=== PATIENT | female | born 1950 | race Caucasian/White ===

== ENCOUNTER 2022-01-08 14:16 | Emergency (ER) | payer OTHER, MEDICAID ==
[~2022-01-08] VITALS: Ht 162.6 cm; Wt 79.5 kg
[2022-01-08] MEDS ORDERED: methylPREDNISolone sod succ 125mg/2ml vial IV ONE (15:05)
[2022-01-08] MEDS ORDERED: ipratropium/albuterol 3ml nebule NEB ONE (15:05)
--- NOTE | 2022-01-08 15:40 | NUR ---
While walking by patients room, over heard patient shouting. I stopped by room to see patient pulling off mask shouting at the respiratory therapist. Patient stated, "Stop asking me these stupid question." The RT asked patient nicely to stop yelling at her. "This is not not yelling, this is me talking loudly. Get this thing off of me." As she fiddles with the RT tx mask. I interjected to find out why patient was yelling. RT stated that patient was upset because she was asking stupid questions, but that she was asking about her oxygen at home. I attempted to call patient. Patient states that she wants to leave and that she would like us to call her daughter danielle to come pick her up. I asked patient if I could get Felisa WATKINS in to speak with her before she made any decision. She agreed. Educated Felisa WATKINS regarding this and he stated that he would go in and speak with her.
[2022-01-08] MEDS ORDERED: morphine 4 MG/ML inj SYRINge IV ONE (15:45)
[2022-01-08] MEDS ORDERED: ondansetron/PF 4mg/2ml inj IV ONE (15:45)
[2022-01-08 15:46] LABS: BASOPHILS # (AUTO) 0.1 X10'3 (0-0.2); BASOPHILS % (AUTO) 1.2 % (0-1); EOSINOPHILS # (AUTO) 0.2 X10'3 (0-0.9); HEMATOCRIT 42.7 % (35.0-45.0); HEMOGLOBIN 14.1 g/dl (12.0-16.0); LYMPHOCYTES # (AUTO) 1.4 X10'3 (1.1-4.8); LYMPHOCYTES % (AUTO) 16.6 % (21-51); MEAN CORPUSCULAR HEMOGLOBIN 30.8 PG (27.0-31.0); MEAN CORPUSCULAR VOLUME 93.5 FL (78-98); MEAN PLATELET VOLUME 7.6 FL (7.4-10.4); MONOCYTES # (AUTO) 0.3 X10'3 (0-0.9); MONOCYTES % (AUTO) 4.2 % (2-12); NEUTROPHILS # (AUTO) 6.2 X10'3 (1.8-7.7); PLATELET COUNT 339 X10'3 (140-440); RED BLOOD COUNT 4.56 X10'6 (4.20-5.60); RED CELL DISTRIBUTION WIDTH 16.3 % (11.5-14.5); WHITE BLOOD COUNT 8.2 X10'3 (4.5-11.0)
[2022-01-08 15:58] LABS: ALANINE AMINOTRANSFERASE 11 U/L (12-78); ALBUMIN 2.8 G/DL (3.4-5.0); ALBUMIN/GLOBULIN RATIO 0.8 (1.1-1.5); ALKALINE PHOSPHATASE 106 IU/L (46-116); ANION GAP 7 (8-16); ASPARTATE AMINO TRANSFERASE 13 U/L (10-37); BILIRUBIN,TOTAL 0.4 MG/DL (0.1-1.0); BLOOD UREA NITROGEN 20 MG/DL (7-18); BUN/CREATININE RATIO 18.5 (6.6-38.0); CHLORIDE 107 MMOL/L (99-107); CREATININE 1.08 MG/DL (0.40-0.90); GLUCOSE 160 MG/DL (70-104); SODIUM 141 MMOL/L (135-145); TOTAL CARBON DIOXIDE 27.3 MMOL/L (24-32); TOTAL PROTEIN 6.3 G/DL (6.4-8.2); eGFR 50 ML/MIN
--- NOTE | 2022-01-08 16:00 | NUR ---
patient yelled at one of the RT when about to administer breathing treatment.
[2022-01-08] MEDS ORDERED: CefTRIAXone 2gm/NS 100ml IVPB 100 ML IV ONE (16:20)
[2022-01-08] MEDS ORDERED: azithromycin/NS 500mg/250ml 250 ML IV ONE (16:20)
--- NOTE | 2022-01-08 16:54 | NUR ---
PATIENT REQUESTED RN TO CALL [phone]/SALVADOR/DAUGHTER, TO LET HER KNOW SHE'S HERE,VOICEMAIL FULL.
--- NOTE | 2022-01-08 17:00 | NUR ---
Given a cup of coffee, and something to eat. No sandwich in the fridge at this time, given gram crackers as an alternative,sugar free jelo- pt then stated, " i don't eat sugar free jelo!".
--- NOTE | 2022-01-08 17:53 | NUR ---
NOTICED PT YELLING OUT FOR HELP. WENT TO BEDSIDE WHEN PT PROCEEDED TO STATE TO ME TO "GET THIS THING OUT OF HERE", REFERRING TO A TURKEY SANDWICH SITTING ON HER BUNCH STAND. I PLACED THE TURKEY SANDWICH ON THE SINK COUNTER AT THAT TIME. PT THEN YELLED AT ME THAT SHE DID NOT ASK FOR TURKEY, AND STATED "I ASKED FOR HAM!". I TRIED TO EXPLAIN TO THE PT THAT WE ONLY RECEIVED TURKEY IN THE EMERGENCY ROOM, AT WHICH POINT SHE TOLD ME "YOU MIGHT WELL JUST THROW IT IN THE GARBAGE, CAUSE I AIN'T EATIN IT". PLACED TURKEY SANDWICH IN THE TRASH CAN AND LEFT PT'S ROOM. WHILE LEAVING ROOM, PT THEN YELLED OUT "AT LEAST GET ME SOME COFFEE".
--- NOTE | 2022-01-08 17:56 | NUR ---
PATIENT YELLING, DID NOT WANT THE SANDWICH THAT WAS GIVEN BECAUSE IT'S NOT TURKEY SANDWICH.
--- NOTE | 2022-01-08 18:14 | NUR ---
"If i don't get a regular tray i will throw it in the trash!".
[2022-01-08] MEDS ORDERED: LORazepam 2 mg/ml vial IV ONE (19:35)
--- NOTE | 2022-01-08 20:11 | NUR ---
pt has been yelling and screaming all shift saying that we are refusing to bring her food but when we bring her food she will refuse what we bring and start yelling that is not what she want. pt was yelling for someone when rn kylie went in to the room pt was tring to pull out her iv kylie got ahold of her arm to stop he then pt started to try and swing on rn kylie i got ahold of pt arms to prevent her from hiting rn kylie. got pt back to her bed charge nurse elke came in and told her that the dr are done treating her with her now tring to hit staff. pt has now calmed down and being more plesant and letting staff give her care
--- NOTE | 2022-01-09 05:07 | NUR ---
PT GIVEN DECAF COFFEE XS 2 CUPS, STILL WANTS MORE.
[2022-01-09] MEDS ORDERED: morphine 4 MG/ML inj SYRINge IV ONE (05:55)
[2022-01-09] MEDS ORDERED: ondansetron/PF 4mg/2ml inj IV ONE (05:55)
--- NOTE | 2022-01-09 07:18 | NUR ---
Gave pt additional 2 cups coffee. Pt talking with daughter and yelling at tech to heat up her coffee. Pt states to daughter that we are "being ass*oles today."
--- NOTE | 2022-01-09 10:13 | NUR ---
Pt upset and yelling at physician. Verbally escalating.
[2022-01-09] MEDS ORDERED: azithromycin 250mg tablet PO ONE (10:20)
[2022-01-09] MEDS ORDERED: ipratropium/albuterol 3ml nebule NEB ONE (10:20)
[2022-01-09] MEDS ORDERED: AZIT250T2 PO (10:20)
[2022-01-09] MEDS ORDERED: PRED20TA PO (10:23)
[2022-01-09] MEDS ORDERED: predniSONE 20 mg tablet PO ONE (10:25)
[2022-01-09] MEDS: methylPREDNISolone sod succ 125mg/2ml vial IV ONE ×2 (10:36→10:42)
[2022-01-09 12:06] VITALS: BP 120/73
== END 2022-01-09 12:22 | disposition short-term general hospital (02) ==
LOC: ER 14:16
DX: J96.21 Acute and chronic respiratory failure with hypoxia (principal); J44.1 Chronic obstructive pulmonary disease with (acute) exacerbation; R07.89 Other chest pain; R45.1 Restlessness and agitation; E11.9 Type 2 diabetes mellitus without complications; G89.29 Other chronic pain; Z85.118 Personal history of other malignant neoplasm of bronchus and lung; Z88.0 Allergy status to penicillin; Z79.2 Long term (current) use of antibiotics; Z79.899 Other long term (current) drug therapy
CPT/HCPCS: 36415; 71045; 71250; 80053; 84145; 84484; 85025; 85610; 93005; 94640; 96365; 96366; 96367; 96375; 96376; 99291; J0456; J0696; J2060; J2270; J2405; J2930; J7512; 94760